=== PATIENT | female | born 1980 | race Caucasian/White ===

== ENCOUNTER 2016-09-09 13:12 | Emergency (ER) | payer MEDICAID ==
[~2016-09-09 13:12] MED LIST: INDO50CA PO
[2016-09-09 13:19] VITALS: BP 131/79; PULSE 84; RESP 20; TEMP 98.5; O2SAT 99
[2016-09-09] MEDS ORDERED: SODIUM CHLOR 0.9% 1000 ML INJ 1,000 ML IV ONE (14:30)
[2016-09-09] MEDS ORDERED: KETOROLAC TROMETHAMINE 30 MG/ML (IVP) VIAL IV PUSH ONE (14:45)
[2016-09-09] MEDS ORDERED: ONDANSETRON HCL 4 MG/2 ML VIAL IV PUSH ONE (14:45)
[2016-09-09 14:54] LABS: BLOOD, URINE NEG (NEG); GLUCOSE,URINE NEG (NEG); KETONE, URINE NEG (NEG); NITRITE,URINE NEG (NEG); PH, URINE 7.5 (5.0-8.5)
[2016-09-09 14:58] LABS: METHOD OF COLLECTION CLEAN CATCH
[2016-09-09 14:59] LABS: COMMENT (UR) CULT NOT INDICATED; CULTURE IF INDICATED CULT NOT INDICATED; RBC, URINE 0-3 /hpf (0-3); SQUAMOUS EPITHELIAL CELL URINE 0-5 /hpf (0-5); URINE COLOR YELLOW (YELLW/STRAW)
[2016-09-09 15:18] LABS: HEMATOCRIT 39.3 % (35.0-46.0); MEAN CELL VOLUME 86.3 FL (80.0-100.0); MEAN CORPUSCULAR HEMOGLOBIN 28.3 PG (27.0-34.0); MEAN CORPUSCULAR HGB CONC 32.8 % (32.0-36.0); PLATELET COUNT 245 TH/MM3 (150-450); RED BLOOD COUNT 4.55 MIL/MM3 (4.00-5.30); RED CELL DISTRIBUTION WIDTH 14.1 % (11.6-17.2); REVIEW FLAG FINAL; WHITE BLOOD COUNT 4.8 TH/MM3 (4.0-11.0)
[2016-09-09 15:28] LABS: CHLORIDE 107 MEQ/L (98-107); SODIUM (NA) 141 MEQ/L (136-145)
[2016-09-09 15:31] LABS: ANION GAP 7 MEQ/L (5-15); BICARBONATE 26.6 MEQ/L (21.0-32.0)
[2016-09-09 15:32] LABS: BLOOD UREA NITROGEN 10 MG/DL (7-18)
--- NOTE | 2016-09-09 15:32 | RADRPT ---
EXAM DATE/TIME: 09/09/2016 14:57 [place] COMPARISON: No previous studies available for comparison. INDICATIONS : Low left side back pain and painful urination for 2 weeks ORAL CONTRAST: No oral contrast ingested. RADIATION DOSE: 12.98 CTDIvol (mGy) MEDICAL HISTORY : Irritable bowel syndrome. SURGICAL HISTORY : Tubal ligation. ENCOUNTER: Initial ACUITY: 2 weeks PAIN SCALE: 9/10 LOCATION: Left flank TECHNIQUE: Volumetric scanning of the abdomen and pelvis was performed. Using automated exposure control and adjustment of the mA and/or kV according to patient size, radiation dose was kept as low as reasonably achievable to obtain optimal diagnostic quality images. DICOM format image data is av ailable electronically for review and comparison. FINDINGS: LOWER LUNGS: The visualized lower lungs are clear. LIVER: Homogeneous density without lesion. There is no dilation of the biliary tree. No calcifi ed gallstones. SPLEEN: Normal size without lesion. PANCREAS: Within normal limits. KIDNEYS: Normal in size and shape. There is no mass, stone, or hydronephrosis. ADRENAL GLANDS: Within normal limits. VASCULAR: There is no aortic aneurysm. BOWEL/MESENTERY: The stomach, small bowel, and colon demonstrate no acute abnormality. There is no free intraperitoneal air or fluid. ABDOMINAL WALL: Within normal limits. RETROPERITONEUM: There is no lymphadenopathy. BLADDER: No wall thickening or mass. REPRODUCTIVE: Within normal limits. Minimal free fluid is noted within the cul-de-sac. INGUINAL: There is no lymphadenopathy or hernia. MUSCULOSKELETAL: Degenerative changes and scoliosis of the lumbar spine are noted. Bony fusion of L3 and L4 is also noted. Sacralization of L5 is also noted. CONCLUSION: 1. Minimal free fluid within the cul-de-sac. 2. No acute intra-abdominal process. 3. No acute obstructive uropathy. 4. Degenerative changes, scoliosis and bony changes including fusion of L3 and L4 as well as sacraliz ation of L5 are noted. Otf Torres MD on September 09, 2016 at 15:25 Board Certified Radiologist. This report was verified electronically.
[2016-09-09 15:34] LABS: ALT (GPT) 15 U/L (10-53); AST (GOT) 11 U/L (15-37)
[2016-09-09 15:35] LABS: GLOMERULAR FILTRATION RATE 83 ML/MIN (>89)
[2016-09-09 15:36] LABS: TOTAL BILIRUBIN ADULT 0.4 MG/DL (0.2-1.0)
[2016-09-09 15:37] LABS: ALKALINE PHOSPHATASE 52 U/L (45-117)
[2016-09-09] MEDS ORDERED: cefTRIAXone 250 MG VIAL IM ONE (16:15)
[2016-09-09] MEDS ORDERED: AZITHROMYCIN 250 MG TAB PO ONE (16:15)
[2016-09-09] MEDS ORDERED: CIPR-9 PO (16:37)
[2016-09-09] MEDS ORDERED: NAPR500 PO (16:37)
[2016-09-09] MEDS ORDERED: DIFL150T PO (16:38)
--- NOTE | 2016-09-09 16:38 | PD ---
HPI Chief Complaint: Back/ Neck Pain or Injury Time Seen by Provider: 14:25 Travel History International Travel<30 days: No Contact w/Intl Traveler<30days: No Traveled to known affect area: No History of Present Illness HPI This is a 36-year-old female patient presents with complaint of pain in the left flank area for approximately 2 weeks. Patient denies fevers and chills nausea vomiting heavy lifting. Patient knows burning on urination. Patient denies vaginal discharge or vaginal bleeding. Patient has unprotected sex with one male partner. Denies any history of sexually-transmitted diseases. She also denies a history of recent trauma. 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) Social History Alcohol Use: No Tobacco Use: No Substance Use: No Allergies-Medications (Allergen,Severity, Reaction): Coded Allergies: Darvocet-N 100 (Verified Allergy, Severe, Hives, 09/09/16) Reported Meds & Prescriptions Reported Meds & Active Scripts Active No Active Prescriptions or Reported Medications Review of Systems ROS Limitations: Clinical Condition General / Constitutional: No: Fever, Chills, Weight Gain, Weight Loss, Other Eyes: No: Diploplia, Blurred Vision, Photophobia, Drainage, Redness, Foreign Body Sensation, Pain, Tearing, Blind Spots, Visual changes, Blindness, Other HENT: No: Headaches, Vertigo, Lightheadedness, Sore Throat, Rhinitis, Rhinorrhea, Congestion, Nosebleed, Neck Stiffness, Neck Pain, Masses, Gingival Bleeding, Dental Difficulties, Ear Discharge, Earache, Other Cardiovascular: No: Chest Pain or Discomfort, Palpitations, Irregular Rhythm, Tachycardia, Diaphoresis, Syncope, Dyspnea on exertion, Varicosities, Edema, Cyanosis, Varicosities, Phlebitis, Claudication, Other Respiratory: No: Cough, Shortness of Breath, Wheezing, Sneezing, Orthopnea, Hemoptysis, Stridor, Night Sweats, Pleuritic Pain, Other Gastrointestinal: No: Nausea, Vomiting, Diarrhea, Abdominal Pain, Hematemesis, Hematochezia, Constipation, Changes in Bowel Habits, Indigestion, Dysphagia, Loss of Appetite, Other Genitourinary: Positive: Dysuria, No: Urgency, Frequency, Nocturia, Hematuria , Decreased Urinary Output, Oliguria, Hesitancy, Dribbling, Incontinence, Pelvic Pain, Flank Pain, Dyspareunia, Discharge, Dysmenorrhea, Menorrhagia, Metorrhagia, Vaginal Bleeding, Other Musculoskeletal: No: Myalgias, Arthralgias, Limited ROM, Weakness, Cramping, Edema, Pain, Atrophy, Other Skin: No Rash, No Itching, No Dryness, No Lumps, No Hives, No Change in Pigmentation, No Change in nails, No Alopecia, No Lesions, No Breast Lumps, No Breast Tenderness, No Breast Swelling, No Other Neurologic: No: Weakness, Dizziness, Syncope, Focal Abnormalities, Coordination Problem, Tremor, Ataxia, Headache, Change in Mentation, Slurred Speech, Paresthesia, Incontinence, Seizures, Sensory Disturbance, Other Psychiatric: No: Anxiety, Depression, Suicidal Ideations, Disorder of Thought, Mood Disorder, Substance Abuse, Homicidal Ideation, Other Endocrine: No: Heat Intolerance, Cold Intolerance, Polyuria, Polydipsia, Other Hematologic/Lymphatic: No: Easy Bruising, Lymph Node Enlargement, Other Physical Exam Exam Limitations: Clinical Condition Narrative GENERAL: 36-year-old female in mild distress secondary to pain SKIN: Focused skin assessment warm/dry.no lesions no cyanosis no erythema HEAD: Atraumatic. Normocephalic. EYES: Pupils equal and round and reactive . No scleral icterus. No injection or drainage. ENT: No nasal bleeding or discharge. Mucous membranes pink and moist. NECK: Trachea midline. No JVD. CARDIOVASCULAR: S1-S2 appreciated. Regular rate and rhythm. No murmur appreciated. Pulses normal throughout. RESPIRATORY: No accessory muscle use. Clear to auscultation. Breath sounds equal bilaterally. GASTROINTESTINAL: Abdomen soft, mild suprapubic tenderness , nondistended. Hepatic and splenic margins not palpable. Bowel sounds normal. No peritoneal signs. MUSCULOSKELETAL: + tenderness in the left flank region to palpation increased with movement Pelvic: + white spots on cervix at 6, 7 ,8 position mild CMT + white discharge from cervix no vaginal bleeding noted no adnexal tenderness or mass NEUROLOGICAL: Awake and alert and oriented 3.. No obvious cranial nerve deficits. Motor and sensory exam grossly within normal limits. Normal speech. No meningeal signs. affect flat PSYCHIATRIC: Appropriate mood and affect; insight and judgment normal. No suicidal or homicidal ideation. Data Data Last Documented VS Vital Signs Date Time Temp Pulse Resp B/P Pulse Ox O2 Delivery O2 Flow Rate FiO2 09/09/16 13:19 98.5 84 20 131/79 99 Orders Urinalysis - C+S If Indicated (09/09/16 14:29) Sodium Chlor 0.9% 1000 Ml Inj (Ns 1000 M (09/09/16 14:30) Ed Urine Pregnancytest Poc (09/09/16 14:29) Ct Abd/Pel W/O Iv Contrast (09/09/16 ) Ketorolac Inj (Toradol Inj) (09/09/16 14:45) Ondansetron Inj (Zofran Inj) (09/09/16 14:45) Cbc No Diff, Includes Plts (09/09/16 15:08) Comprehensive Metabolic Panel (09/09/16 15:08) Urine Culture (09/09/16 15:12) Ceftriaxone Inj (Rocephin Inj) (09/09/16 16:15) Azithromycin (Zithromax) (09/09/16 16:15) Labs Laboratory Tests Test 09/09/16 09/09/16 14:32 15:00 Urine Collection Type CLEAN CATCH Urine Color YELLOW Urine Turbidity CLEAR Urine pH 7.5 Urine Specific [place] 1.015 Urine Protein NEG mg/dL Urine Glucose (UA) NEG mg/dL Urine Ketones NEG mg/dL Urine Occult Blood NEG Urine Nitrite NEG Urine Bilirubin NEG Urine Leukocyte Esterase NEG Urine RBC 0-3 /hpf Urine Squamous Epithelial 0-5 /hpf Cells Microscopic Urinalysis Comment CULT NOT INDICATED Urine Collection Time 14:32 White Blood Count 4.8 TH/MM3 Red Blood Count 4.55 MIL/MM3 Hemoglobin 12.9 GM/DL Hematocrit 39.3 % Mean Corpuscular Volume 86.3 FL Mean Corpuscular Hemoglobin 28.3 PG Mean Corpuscular Hemoglobin 32.8 % Concent Red Cell Distribution Width 14.1 % Platelet Count 245 TH/MM3 Mean Platelet Volume 8.6 FL Sodium Level 141 MEQ/L Potassium Level 4.0 MEQ/L Chloride Level 107 MEQ/L Carbon Dioxide Level 26.6 MEQ/L Anion Gap 7 MEQ/L Blood Urea Nitrogen 10 MG/DL Creatinine 0.78 MG/DL Estimat Glomerular Filtration 83 ML/MIN Rate Random Glucose 90 MG/DL Calcium Level 9.0 MG/DL Total Bilirubin 0.4 MG/DL Aspartate Amino Transf 11 U/L (AST/SGOT) Alanine Aminotransferase 15 U/L (ALT/SGPT) Alkaline Phosphatase 52 U/L Total Protein 7.2 GM/DL Albumin 3.8 GM/DL MDM Medical Decision Making Medical Screen Exam Complete: Yes Emergency Medical Condition: Yes Medical Record Reviewed: Yes Interpretation(s) UA negative not consistent with infection CT scan of the abdomen stone protocol and negative for kidney stone CT otherwise negative for intra-abdominal disease Differential Diagnosis Differential diagnoses pyelonephritis and cystitis nephrolithiasis musculoskeletal low back pain constipation dehydration Narrative Course This is a 36-year-old female with no significant past medical history presents with a complaint of a two-week history of left flank pain is getting progressively worse despite NSAIDs administered at home. Patient denies nausea vomiting fever chills heavy lifting vaginal discharge recent direct trauma has no bleeding patient hydrated with normal saline CT the abdomen and pelvis without contrast is negative for kidney stones also negative for any other intra -abdominal pathology WBC is 9 chemistry unremarkable Pelvic exam performed and white discharge and moderate amount is noted whitish lesions noted on the cervix and rarely on the patient's right side at the 6, 7, 8 o clock position Mild CMT noted patient given Rocephin 250 IM azithromycin 1000 mg by mouth now culture sent. Patient given Toradol for pain with improvement in pain. Cultures sent for GC and chlamydia. We'll discharge patient home on Naprosyn to follow-up with [employer] service and to follow with her primary care doctor to reevaluate flank pain and vaginal discharge and further management will give a 3 day course of Cipro to treat cystitis and Diflucan 1 dose by mouth to prevent a secondary yeast infection from the antibiotic administration. Diagnosis Primary Impression: Left flank pain Additional Impressions: Dysuria Cervicitis Patient Instructions: Cervicitis (DC), Dysuria (ED), Flank Pain (ED), General Instructions Additional Instructions: stay well hydrated finish antibiotics take diiflucan as directed take naprosyn as needed for pain no heavy lifitng greater than 10 lbs follow up with gynecology for re-evaluation and further management return if symptoms persist or worsen there is fever chills vomiting Scripts Fluconazole (Diflucan)150 Mg [id number] Mg PO ONCE #1 TAB Ref 0 Prov:René Chi MD 09/09/16 Ciprofloxacin (Cipro)500 Mg [id number] Mg PO BID 5 Days Ref 0 Prov:René Chi MD 09/09/16 Naproxen (Naprosyn)500 Mg [id number] Mg PO BID #20 TAB Ref 0 Prov:René Chi MD 09/09/16 Condition: Stable René Chi MD Sep 09, 2016 16:38
[2016-09-09 20:48] LABS: CHLAMYDIA PCR NOT DETECTED (NOT DETECT); NEISSERIA PCR NOT DETECTED (NOT DETECT)
== END 2016-09-09 17:48 | disposition home or self-care (01) ==
LOC: PHED 13:12
DX: N72 Inflammatory disease of cervix uteri (principal); R30.0 Dysuria; R10.9 Unspecified abdominal pain; K58.9 Irritable bowel syndrome, unspecified
CPT/HCPCS: 74176; 80053; 81001; 84703; 85027; 87086; 87210; 87491; 87591; 96361; 96374; 96375; 99284; J0696; J1885; J2405; J7030